=== PATIENT | female | born 1985 | race Caucasian/White ===

== ENCOUNTER 2023-02-08 09:57 | Day surgery (SDC) | payer BC ==
[2023-02-07 09:05] VITALS: BMI 22.1
[2023-02-08] MEDS ORDERED: Heparin 5,000 UNITS/ML VIAL ONE (10:52)
[2023-02-08] MEDS ORDERED: CEFAZOLIN 2 GM VIAL ONE (10:52)
[2023-02-08] MEDS ORDERED: Sodium Chloride 0.9% 0 ML ONE (10:52)
[2023-02-08] MEDS ORDERED: Vancomycin 1 GM VIAL ONE (10:56)
[2023-02-08] MEDS ORDERED: EPINEPHrine 1 MG/ML VIAL ONE (10:56)
[2023-02-08] MEDS ORDERED: Bupivacaine 0.25% HCL 30 ML VIAL ONE (10:56)
[2023-02-08] MEDS ORDERED: Gentamicin 80 MG/2 ML VIAL ONE (10:57)
[2023-02-08] MEDS ORDERED: fentaNYL PF 100 MCG/2 ML SYRINGE ONE ×2 (11:55→14:22)
[2023-02-08] MEDS ORDERED: Midazolam HCl 2 mg/2 ml Vial ONE (11:55)
[2023-02-08] MEDS ORDERED: Lidocaine 2% PF 100 mg/5 ml Syringe ONE (11:55)
[2023-02-08] MEDS ORDERED: CEFAZOLIN 1 GM VIAL ONE (11:55)
[2023-02-08] MEDS ORDERED: Dexamethasone 4 mg/ml Vial ONE ×2 (11:55→11:56)
[2023-02-08] MEDS ORDERED: PROPOFOL 20 ML ONE (11:55)
[2023-02-08] MEDS ORDERED: SUGAMMADEX SODIUM 200 MG/2 ML VIAL ONE (11:56)
[2023-02-08] MEDS ORDERED: Ondansetron PF 4 MG/2 ML Vial ONE ×3 (11:56→12:16)
[2023-02-08] MEDS ORDERED: Rocuronium Bromide 10 MG/ML (10ML VIAL) ONE ×2 (11:56→12:16)
[2023-02-08] MEDS ORDERED: Sterile Water 10 ML ONE (11:56)
[2023-02-08] MEDS ORDERED: Dexamethasone 20 MG/5 ML VIAL ONE (12:16)
[2023-02-08] MEDS ORDERED: PROPOFOL 200 MG/20 ML VIAL ONE (12:16)
[2023-02-08] MEDS ORDERED: Lidocaine 1% PF 5 ML VIAL ONE (12:16)
[2023-02-08] MEDS ORDERED: Tranexamic Acid 1,000 MG/10 ML VIAL ONE (15:16)
[2023-02-08] MEDS ORDERED: fentaNYL 50 mcg/mL 1 mL Vial ONE ×2 (16:34→16:47)
[2023-02-08] MEDS ORDERED: HYDROcodone/Acetaminophen 5/325 mg Tablet ONE (17:13)
[2023-02-08] MEDS ORDERED: Metoclopramide HCl 10 MG/2 ML VIAL ONE (17:34)
== END 2023-02-08 18:20 | disposition home or self-care (01) ==
LOC: SDC 09:57
PROVIDERS: ATTEND Plastic Surgery
PROC: 0H0V0ZZ Alteration of Bilateral Breast, Open Approach (ICD-10-PCS; principal; 2023-02-08)
DX: N62 Hypertrophy of breast (principal)
CPT/HCPCS: 88305; J0171; J0690; J1100; J1580; J1644; J2001; J2250; J2405; J2704; J2765; J3010; J3370; J3490; S0020

== ENCOUNTER 2023-10-09 21:12 | Emergency (ER) | payer BC ==
[2023-10-09 22:22] LABS: #Basophils Less than 0.03 10x3/uL (0.0-0.2); %Basophils 0.2 % (0.0-1.0); %Eosinophils 1.1 % (0.0-10.0); %Lymphocytes 28.6 % (21.0-51.0); %Monocytes 7.7 % (0.0-10.0); %Neutrophils 62.2 % (42.0-75.0); Hematocrit 41.1 % (36.0-47.0); Hemoglobin 14.5 g/dL (12.0-16.0); Mean Corpuscular HGB CONC 35.3 g/dL (32.0-36.0); Mean Corpuscular Hemoglobin 31.3 pg (27.0-31.0); Mean Corpuscular Volume 88.8 fL (78.0-98.0); Mean Platelet Volume 8.5 fL (7.4-10.4); Platelet Count 326 10x3/uL (130-400); RBC Distribution Width 12.1 % (11.5-14.5); Red Blood Cell (RBC) Count 4.63 mill/uL (4.20-5.40)
[2023-10-09 23:22] LABS: BHCG - Serum Negative (NEGATIVE); Pregs Control Background? CLEAR/WHITE (CLR/WHITE); Pregs Control Bar Appear? YES (CONTROL BAR)
[2023-10-09 23:29] LABS: ALT (SGPT) 13 U/L (8-55); AST (SGOT) 13 U/L (5-34); Alkaline Phosphatase 84 U/L (40-110); Anion Gap 11 mmol/L (10-20); BUN (Urea Nitrogen) 16 mg/dL (7.0-18.7); Bilirubin, Total 0.5 mg/dL (0.2-1.2); Calc. Creatinine Clearance 0 mL/min (70-130); Calcium 10.2 mg/dL (7.8-10.44); Carbon Dioxide 21 mmol/L (22-29); Chloride 113 mmol/L (98-107); Estimated GFR 102; Globulin 2.8 g/dL (2.4-3.5); Glucose 99 mg/dL (70-105); Lipase 18 U/L (8-78); Potassium 4.1 mmol/L (3.5-5.1); Protein, Total 6.8 g/dL (6.0-8.3); Sodium 141 mmol/L (136-145)
[2023-10-10 00:15] LABS: Bacteria/HPF None Seen HPF (None Seen); Bilirubin Negative (Negative); Blood, Urine Trace (Negative); CAUTI Indications for Culture Fever or rigors; Clarity Clear (Clear); Glucose, Urine (Dipstick) Normal (Negative); Ketone, Urine 60 mg/dL (Negative); Leukocyte Negative Leu/uL (Negative); Nitrite Negative (Negative); Protein, Urine (Dipstick) 20 mg/dL (Neg-Trace); RBC/HPF 0-3 HPF (0-3); Specific Gravity, Urine 1.023 (1.002-1.036); Urobilinogen Normal mg/dL (Less than 2); WBC/HPF 0-3 HPF (0-3)
[2023-10-10 00:17] LABS: Urine Culture Reflex No No
[2023-10-10] MEDS ORDERED: Morphine 2 MG/ML VIAL ONE (00:20)
[2023-10-10] MEDS ORDERED: Ondansetron PF 4 MG/2 ML Vial ONE (00:20)
[2023-10-10] MEDS ORDERED: Iopamidol-370 76% 500 ML MDV (1 ML CHARGE) ONE (15:09)
== END 2023-10-10 01:35 | disposition home or self-care (01) ==
LOC: ERS 21:12
DX: D25.9 Leiomyoma of uterus, unspecified (principal)
CPT/HCPCS: 36415; 74177; 80053; 81001; 83690; 84703; 85025; 93005; 96374; 96375; J2272; J2405; Q9967

== ENCOUNTER 2024-04-10 16:18 | Inpatient (IN) | payer BC ==
[2024-04-10] MEDS ORDERED: Iopamidol 15 ML ONE (16:35)
[2024-04-10] MEDS ORDERED: PROPOFOL 0 ML ONE ×2 (17:35→17:36)
[2024-04-10] MEDS ORDERED: Lidocaine 1% PF 5 ML VIAL ONE (17:35)
[2024-04-10] MEDS ORDERED: Dexamethasone 20 MG/5 ML VIAL ONE (17:40)
[2024-04-10] MEDS ORDERED: Ondansetron PF 4 MG/2 ML Vial IVP PRN ×2 (17:49→17:50)
[2024-04-10] MEDS ORDERED: Meperidine HCl/PF 25 MG (1 mL) VIAL ONE (18:30)
[2024-04-10] MEDS ORDERED: Acetaminophen 650 MG Suppository PR PRN (18:42)
[2024-04-10] MEDS ORDERED: Acetaminophen 325 MG TAB PO PRN (18:42)
[2024-04-10] MEDS ORDERED: cefTRIAXone\\ROCEPHIN 1 GM in Sodium Chloride 0.9% 100 ML IVPB SCH (20:00)
[2024-04-10] MEDS: Sodium Chloride 0.9% 1,000 ML IV SCH (20:27)
[2024-04-10] MEDS: Phenazopyridine HCl 100 MG TAB PO SCH (20:28)
[2024-04-10] MEDS: Docusate 100 MG CAP PO SCH (20:28)
[2024-04-10] MEDS: Topiramate 100 MG TAB PO SCH (20:28)
[2024-04-10] MEDS: Famotidine 20 MG TAB PO SCH (20:28)
[2024-04-10 23:04] VITALS: BMI 21.2
[2024-04-11] MEDS: Ketorolac Tromethamine 30 MG (1 mL) VIAL IVP PRN (01:53)
[2024-04-11 05:17] LABS: #Basophils Less than 0.03 10x3/uL (0.0-0.2); #Eosinophils Less than 0.03 10x3/uL (0.0-0.7); %Basophils 0.2 % (0.0-1.0); %Eosinophils 0.2 % (0.0-10.0); %Monocytes 8.2 % (0.0-10.0); Hematocrit 33.2 % (36.0-47.0); Hemoglobin 11.4 g/dL (12.0-16.0); Mean Corpuscular HGB CONC 34.3 g/dL (32.0-36.0); Mean Corpuscular Hemoglobin 30.2 pg (27.0-31.0); Mean Corpuscular Volume 87.8 fL (78.0-98.0); Mean Platelet Volume 8.7 fL (7.4-10.4); Platelet Count 268 10x3/uL (130-400); RBC Distribution Width 12.1 % (11.5-14.5); Red Blood Cell (RBC) Count 3.78 mill/uL (4.20-5.40)
[2024-04-11 05:33] LABS: Anion Gap 8 mmol/L (10-20); BUN (Urea Nitrogen) 13 mg/dL (7.0-18.7); Calc. Creatinine Clearance 98 mL/min (70-130); Calcium 8.1 mg/dL (7.8-10.44); Carbon Dioxide 21 mmol/L (22-29); Chloride 112 mmol/L (98-107); Estimated GFR 116; Glucose 112 mg/dL (70-105); Potassium 4.2 mmol/L (3.5-5.1); Sodium 137 mmol/L (136-145)
[2024-04-11] MEDS: Oxybutynin ER 5 MG TAB PO SCH (08:31)
[2024-04-11] MEDS: Polyethylene Glycol 3350 17 GM Packet PO SCH (08:32)
[2024-04-11] MEDS: cefTRIAXone\\ROCEPHIN 1 GM in Sodium Chloride 0.9% 100 ML IVPB SCH (11:01)
[2024-04-11 12:19] VITALS: BP 108/75
[2024-04-11 12:23] VITALS: TEMP 98.3
[2024-04-11 12:40] LABS: Clarity Hazy (Clear)
[2024-04-11 12:41] LABS: Bilirubin Unable to Interpret (Negative); Blood, Urine Unable to Interpret (Negative); Glucose, Urine (Dipstick) Unable to Interpret mg/dL (Negative); Ketone, Urine Unable to Interpret mg/dL (Negative); Leukocyte Unable to Interpret Leu/uL (Negative); Nitrite Unable to Interpret (Negative); Protein, Urine (Dipstick) Unable to Interpret mg/dL (Neg-Trace); Specific Gravity, Urine 1.016 (1.002-1.036); Urobilinogen UNABLE TO INTERPRET mg/dL (Less than 2); pH, Urine 6.4 (5.0-9.0)
[2024-04-11 12:43] LABS: Bacteria/HPF 1+ HPF (None Seen)
[2024-04-11] MEDS: Ibuprofen 600 MG TAB PO SCH (12:54)
[2024-04-11 14:14] LABS: Bilirubin Unable to Interpret (Negative); Blood, Urine Unable to Interpret (Negative); Clarity Hazy (Clear); Glucose, Urine (Dipstick) Unable to Interpret mg/dL (Negative); Ketone, Urine Unable to Interpret mg/dL (Negative); Leukocyte Unable to Interpret Leu/uL (Negative); Nitrite Unable to Interpret (Negative); Protein, Urine (Dipstick) Unable to Interpret mg/dL (Neg-Trace); Specific Gravity, Urine 1.012 (1.002-1.036); Urobilinogen UNABLE TO INTERPRET mg/dL (Less than 2); pH, Urine 6.5 (5.0-9.0)
[2024-04-11 14:21] LABS: RBC/HPF 21-50 HPF (0-3)
[2024-04-11 14:22] LABS: Bacteria/HPF Rare-Few HPF (None Seen)
== END 2024-04-11 14:03 | disposition home or self-care (01) | DRG 661 ==
LOC: SDC 16:18 → SURG A 17:43
PROVIDERS: ADMIT Internal Medicine; ATTEND Urology
PROC: BT1D1ZZ Fluoroscopy of Right Kidney, Ureter and Bladder using Low Osmolar Contrast (ICD-10-PCS; principal; 2024-04-10)
PROC: 0T768DZ Dilation of Right Ureter with Intraluminal Device, Via Natural or Artificial Opening Endoscopic (ICD-10-PCS; 2024-04-10)
DX: N13.6 Pyonephrosis (principal); G43.909 Migraine, unspecified, not intractable, without status migrainosus; Z90.710 Acquired absence of both cervix and uterus; Z88.0 Allergy status to penicillin; Z88.2 Allergy status to sulfonamides; Z88.8 Allergy status to other drugs, medicaments and biological substances; Z98.890 Other specified postprocedural states
CPT/HCPCS: 36415; 74420; 80048; 81001; 85025; 87086; C2617; J0696; J1100; J1885; J2175; J2704; J7030; Q9967

== ENCOUNTER 2024-04-15 16:00 | Outpatient (CLI) | payer BC ==
[2024-04-15 17:07] LABS: #Basophils 0.04 10x3/uL (0.0-0.2); %Basophils 0.4 % (0.0-1.0); %Eosinophils 2.5 % (0.0-10.0); %Lymphocytes 19.4 % (21.0-51.0); %Monocytes 6.6 % (0.0-10.0); %Neutrophils 70.8 % (42.0-75.0); Hematocrit 43.7 % (36.0-47.0); Hemoglobin 15.2 g/dL (12.0-16.0); Mean Corpuscular HGB CONC 34.8 g/dL (32.0-36.0); Mean Corpuscular Hemoglobin 30.7 pg (27.0-31.0); Mean Corpuscular Volume 88.3 fL (78.0-98.0); Mean Platelet Volume 8.5 fL (7.4-10.4); Platelet Count 370 10x3/uL (130-400); RBC Distribution Width 12.3 % (11.5-14.5); Red Blood Cell (RBC) Count 4.95 mill/uL (4.20-5.40)
[2024-04-15 17:18] LABS: PTT 30.2 sec (22.9-36.1)
[2024-04-15 17:29] LABS: Anion Gap 11 mmol/L (10-20); BUN (Urea Nitrogen) 18 mg/dL (7.0-18.7); Calc. Creatinine Clearance 0 mL/min (70-130); Calcium 9.5 mg/dL (7.8-10.44); Carbon Dioxide 22 mmol/L (22-29); Chloride 110 mmol/L (98-107); Estimated GFR 117; Glucose 96 mg/dL (70-105); Potassium 3.8 mmol/L (3.5-5.1); Sodium 139 mmol/L (136-145)
== END 2024-04-15 16:01 | disposition home or self-care (01) ==
LOC: LABBT 16:00
PROVIDERS: ATTEND Urology
DX: Z01.812 Encounter for preprocedural laboratory examination (principal); N20.0 Calculus of kidney
CPT/HCPCS: 80048; 85025; 85610; 85730

== ENCOUNTER 2024-04-22 05:50 | Day surgery (SDC) | payer BC ==
[2024-04-15 16:24] VITALS: BMI 21.2
[2024-04-22] MEDS ORDERED: LevoFLOXacin D5W 500 mg (100 mL) BAG ONE (06:15)
[2024-04-22] MEDS ORDERED: LevoFLOXacin 500 mg/D5W 500 MG in Premix 1 BAG IVPB SCH (06:30)
[2024-04-22] MEDS ORDERED: Iopamidol 15 ML ONE (06:38)
[2024-04-22] MEDS ORDERED: Lidocaine 1% PF 5 ML VIAL ONE (06:53)
[2024-04-22] MEDS ORDERED: Midazolam HCl 2 mg/2 ml Vial ONE (06:53)
[2024-04-22] MEDS ORDERED: PROPOFOL 20 ML ONE ×2 (06:53→07:48)
[2024-04-22] MEDS ORDERED: Rocuronium Bromide 10 MG/ML (10ML VIAL) ONE (06:53)
[2024-04-22] MEDS ORDERED: fentaNYL PF 100 MCG/2 ML SYRINGE ONE (06:53)
[2024-04-22] MEDS ORDERED: Dexamethasone 4 mg/ml Vial ONE ×2 (07:25→07:29)
[2024-04-22] MEDS ORDERED: Ondansetron PF 4 MG/2 ML Vial ONE (07:25)
[2024-04-22] MEDS ORDERED: PHENYLEPHRINE-NS 100 MCG/ML 10 ML SYRINGE ONE (07:27)
[2024-04-22] MEDS ORDERED: SUGAMMADEX SODIUM 200 MG/2 ML VIAL ONE (07:30)
[2024-04-22] MEDS ORDERED: Ketorolac Tromethamine 30 MG (1 mL) VIAL ONE (07:48)
[2024-04-22] MEDS ORDERED: Phenazopyridine HCl 100 MG TAB ONE (08:13)
[2024-04-22] MEDS ORDERED: Oxybutynin 5 MG TAB ONE (08:13)
== END 2024-04-22 10:21 | disposition home or self-care (01) ==
LOC: SDC 05:50
PROVIDERS: ATTEND Urology
PROC: 0T768DZ Dilation of Right Ureter with Intraluminal Device, Via Natural or Artificial Opening Endoscopic (ICD-10-PCS; principal; 2024-04-22)
PROC: 0TC68ZZ Extirpation of Matter from Right Ureter, Via Natural or Artificial Opening Endoscopic (ICD-10-PCS; principal; 2024-04-22)
DX: N20.2 Calculus of kidney with calculus of ureter (principal); Z98.890 Other specified postprocedural states; Z90.710 Acquired absence of both cervix and uterus; Z98.51 Tubal ligation status
CPT/HCPCS: 74420; 82365; 88300; C1769; C2617; J1100; J1885; J1956; J2250; J2405; J2704; Q9967

== ENCOUNTER 2024-10-20 12:32 | Outpatient (CLI) | payer BC | END 2024-10-20 12:33 | disposition home or self-care (01) | LOC: ULT 12:32 | PROVIDERS: ATTEND Urology | DX: N20.0 Calculus of kidney (principal) | CPT/HCPCS: 76770 ==